=== PATIENT | female | born 1945 | race African-American/Black ===

== ENCOUNTER 2017-04-29 15:33 | Emergency (ER) | payer OTHER ==
[~2017-04-29] VITALS: Ht 162.6 cm; Wt 85.3 kg
[~2017-04-29 15:33] MED LIST: AMLO5TAB2 PO; ASPI-482 PO; ATOR10TA60 PO; CLON0.1T PO; DOXY100C2 PO; ESTR1PAT27 TD; FISH1CAP PO; LOSA1TAB16 PO; METF500T4 PO; MULT1TAB97 PO; OMEP20CA9 PO; RANI150C PO; TIZA2TAB PO
[2017-04-29 15:43] VITALS: BP 163/90
[2017-04-29] MEDS ORDERED: HYDR-971 PO (16:09)
[2017-04-29] MEDS ORDERED: CLIN300C8 PO (16:09)
--- NOTE | 2017-04-29 16:09 | PHYS DOC ---
Past Medical History Past Medical History: Diabetes-Type II, GERD, High Cholesterol, Hypertension Past Surgical History: Hysterectomy Additional Past Surgical Histo: Bladder sling, sinus surgery Alcohol Use: None Drug Use: None Adult General Chief Complaint Chief Complaint: DENTAL PROBLEM HPI HPI Patient is a 71 year old female with history of hypertension diabetes type 2 and acid reflux who presents today with mild left upper gum dental pain and swelling that began 2 days ago. Patient denies any fever or trismus. She states she does have a dentist. PCP is Dr. Desai Review of Systems Review of Systems Constitutional: Denies fever or chills [] Eyes: Denies change in visual acuity, redness, or eye pain [] HENT: Dental pain and swelling Musculoskeletal: Denies back pain or joint pain [] Integument: Denies rash or skin lesions [] Neurologic: Denies headache, focal weakness or sensory changes [] Endocrine: Denies polyuria or polydipsia [] Allergies Allergies Allergies Coded Allergies Type Severity Reaction Last Updated Verified Penicillins Allergy Intermediate Rash 07/02/16 Yes codeine Allergy Intermediate Rash 07/03/16 Yes Physical Exam Physical Exam Constitutional: Well developed, well nourished, no acute distress, non-toxic appearance. [] HENT: Normocephalic, atraumatic, bilateral external ears normal, oropharynx moist, no oral exudates, nose normal. [] Left facial area with mild swelling consistent with a dental abscess Slight left lower gum dental erythema Skin: Warm, dry, no erythema, no rash. [] Back: No tenderness, no CVA tenderness. [] Extremities: No tenderness, no cyanosis, no clubbing, ROM intact, no edema. [] Neurologic: Alert and oriented X 3, normal motor function, normal sensory function, no focal deficits noted. [] Psychologic: Affect normal, judgement normal, mood normal. [] Current Patient Data Vital Signs Vital Signs Date Time Temp Pulse Resp B/P (MAP) Pulse Ox O2 Delivery O2 Flow Rate FiO2 04/29/17 15:43 98.4 87 20 100 Room Air 98.4 EKG EKG [] Radiology/Procedures Radiology/Procedures [] Course & Med Decision Making Course & Med Decision Making Pertinent Labs and Imaging studies reviewed. (See chart for details) Patient was treated for dental abscesses clindamycin. Discharged with [place] for pain. Follow-up with dentist next week. Dragon Disclaimer Dragon Disclaimer This electronic medical record was generated, in whole or in part, using a voice recognition dictation system. Departure Departure Impression: Primary Impression: Dentalgia Additional Impression: Dental abscess Disposition: 01 HOME, SELF-CARE Condition: STABLE Referrals: LUIS MIGUEL DESAI MD (PCP) Follow-up with your dentist as soon as you can Patient Instructions: Dental Abscess Additional Instructions: You were seen for dental abscess. Please complete your antibiotics. Follow-up with your dentist as soon as you can. Scripts Clindamycin Hcl (CLINDAMYCIN HCL) 300 Mg Capsule 3 CAP PO TID, #90 CAP Prov: VITO SPENCE APRN 04/29/17 Hydrocodone/Apap 5-325 (NORCO 5-325 TABLET) 1 Each Tablet 1-2 TAB PO Q4-6HRS, #14 TAB Prov: VITO SPENCE APRN 04/29/17 Problem Qualifiers VITO SPENCE APRN Apr 29, 2017 16:09
== END 2017-04-29 16:15 | disposition home or self-care (01) ==
LOC: ER 15:33
DX: K04.7 Periapical abscess without sinus (principal); I10 Essential (primary) hypertension; E11.9 Type 2 diabetes mellitus without complications; K21.9 Gastro-esophageal reflux disease without esophagitis; E78.00 Pure hypercholesterolemia, unspecified; Z88.0 Allergy status to penicillin; Z90.710 Acquired absence of both cervix and uterus; Z88.5 Allergy status to narcotic agent
CPT/HCPCS: 99283

== ENCOUNTER → 2017-07-28 | Outpatient (CLI) | payer OTHER ==
[~2017-07-28] MED LIST changes: +CLIN300C8 PO; +HYDR-971 PO; -LOSA1TAB16 PO; +LOSA1TAB19 PO
--- NOTE | 2017-07-28 14:45 | RAD ---
DATE: 07/28/2017 EXAM: DIGITAL SCREEN BILAT W/CAD HISTORY: Screening study. COMPARISON: 07/27/2016 This study was interpreted with the benefit of Computerized Aided Detection (CAD). The breast parenchyma shows scattered fibroglandular densities. Breast parenchyma level B. FINDINGS: Digital MLO and CC mammograms of both breasts were obtained. Comparison study is dated 07/27/2016. The breast parenchyma is composed of scattered fibroglandular densities which can obscure a lesion on mammography (breast density code B). Benign-appearing calcifications are seen bilaterally. No spiculated mass is noted. No malignant appearing calcification or area of architectural distortion is noted. Since the previous examination there has been no significant interval change. IMPRESSION: BI-RADS Category 1, negative. There is no mammographic evidence of malignancy. Routine yearly screening mammography is recommended for follow-up. BI-RADS CATEGORY: 1 NEGATIVE RECOMMENDED FOLLOW-UP: 12M 12 MONTH FOLLOW-UP PQRS compliance statement: Patient information was entered into a reminder system with a target due date 07/28/2018 for the next mammogram. Mammography is a sensitive method for finding small breast cancers, but it does not detect them all and is not a substitute for careful clinical examination. A negative mammogram does not negate a clinically suspicious finding and should not result in delay in biopsying a clinically suspicious abnormality. "Our facility is accredited by the [employer] Mammography [employer]."
== END | disposition home or self-care (01) ==
LOC: MAMMO 09:45
PROVIDERS: ATTEND Internal Medicine
DX: Z12.31 Encounter for screening mammogram for malignant neoplasm of breast (principal)
CPT/HCPCS: G0202; 77067

== ENCOUNTER 2017-11-28 09:06 | Emergency (ER) | payer OTHER ==
[2017-11-28 10:20] LABS: HEMATOCRIT 43.2 % (36.0-47.0); MEAN CORPUSCULAR HEMOGLOBIN 27 pg (25-35); MEAN CORPUSCULAR HGB CONC 32 g/dL (31-37); MEAN CORPUSCULAR VOLUME 84 fL (79-100); PLATELET COUNT 443 x10^3/uL (140-400); RED BLOOD COUNT 5.17 x10^6/uL (3.50-5.40); RED CELL DISTRIBUTION WIDTH 14.2 % (11.5-14.5); WHITE BLOOD COUNT 6.8 x10^3/uL (4.0-11.0)
[2017-11-28] MEDS: BENZONATATE 100 MG CAPSULE. PO (10:27)
[2017-11-28 10:41] LABS: ANION GAP 11 (6-14); BLOOD UREA NITROGEN 17 mg/dL (7-20); BUN/CREATININE RATIO 21 (6-20); CALCIUM 10.1 mg/dL (8.5-10.1); CARBON DIOXIDE 29 mmol/L (21-32); CHLORIDE 99 mmol/L (98-107); CREATININE 0.8 mg/dL (0.6-1.0); GFR 85.1; GLUCOSE 216 mg/dL (70-99); SODIUM 139 mmol/L (136-145)
[2017-11-28 10:47] LABS: ALBUMIN 4.1 g/dL (3.4-5.0); ALBUMIN/GLOBULIN RATIO 1.1 (1.0-1.7); ALK PHOS 61 U/L (46-116); ALT (SGPT) 22 U/L (14-59); AST (SGOT) 32 U/L (15-37); BILIRUBIN,URINE SMALL (NEG); CLARITY,URINE CLEAR; GLUCOSE,URINE NEGATIVE (NEG); NITRITE,URINE NEGATIVE (NEG); PH,URINE 5.5; PROTEIN,URINE NEGATIVE (NEG-TRACE); TOTAL BILIRUBIN 0.6 mg/dL (0.2-1.0); TOTAL PROTEIN 7.7 g/dL (6.4-8.2)
[2017-11-28 10:58] LABS: COLOR,URINE YELLOW; HYALINE CASTS, URINE MODERATE /HPF; SQUAMOUS EPITHELIAL CELL,UR MANY /LPF
[2017-11-28 10:59] LABS: BACTERIA,URINE MOD /HPF (0-FEW)
[2017-11-28 11:00] LABS: RBC,URINE OCC /HPF (0-2)
[2017-11-28 11:06] LABS: INFLUENZA A PATIENT NEGATIVE (NEGATIVE); INFLUENZA B PATIENT NEGATIVE (NEGATIVE); OBC FLU VALID
== END 2017-11-28 11:35 | disposition home or self-care (01) ==
LOC: ER 09:06
DX: J20.9 Acute bronchitis, unspecified (principal); E78.00 Pure hypercholesterolemia, unspecified; E11.9 Type 2 diabetes mellitus without complications; I10 Essential (primary) hypertension; K21.9 Gastro-esophageal reflux disease without esophagitis; Z88.0 Allergy status to penicillin; Z88.5 Allergy status to narcotic agent
CPT/HCPCS: 36415; 71046; 80053; 81001; 85027; 87804; 87804-59; 99285-25

== ENCOUNTER 2018-04-28 07:42 | Emergency (ER) | payer OTHER ==
[2018-04-28] MEDS: FAMOTIDINE 20 MG TABLET. PO (08:38)
[2018-04-28] MEDS: hydrOXYzine IM 50 MG/ML VIAL IM (08:41)
[2018-04-28] MEDS: methylPREDNISolone SOD SUCC PF 125 MG/2 ML VIAL. IM (08:44)
== END 2018-04-28 09:00 | disposition home or self-care (01) ==
LOC: ER 07:42
DX: L23.9 Allergic contact dermatitis, unspecified cause (principal); E11.9 Type 2 diabetes mellitus without complications; K21.9 Gastro-esophageal reflux disease without esophagitis; E78.00 Pure hypercholesterolemia, unspecified; I10 Essential (primary) hypertension; Z88.0 Allergy status to penicillin; Z88.5 Allergy status to narcotic agent; Z88.8 Allergy status to other drugs, medicaments and biological substances
CPT/HCPCS: 96372; 99284; J2930; J3410

== ENCOUNTER → 2018-07-31 | Outpatient (CLI) | payer OTHER ==
[2018-04-28 07:44] VITALS: BP 158/89
[~2018-07-31] MED LIST changes: -AMLO5TAB2 PO; +AMLO5TAB7 PO; +AZIT250T6 PO; +BENZ100C PO; +GUAI600T47 PO; +HYDR25TA PO; +LOSA100T7 PO; +METF500T16 PO; -METF500T4 PO; +TRIA15OI TP
--- NOTE | 2018-07-31 12:36 | RAD ---
DATE: 07/31/2018 EXAM: MAMMO WYATT SCREENING BILATERAL HISTORY: Routine screening COMPARISON: 07/28/2017 This study was interpreted with the benefit of Computerized Aided Detection (CAD). The breast parenchyma shows scattered fibroglandular densities. Breast parenchyma level B. FINDINGS: 2-D and 3-D tomosynthesis imaging was performed in CC and MLO projections. No new or enlarging breast densities are seen. Minimal benign type calcifications are noted. No suspicious microcalcifications have developed. IMPRESSION: Stable mammograms without evidence of malignancy. BI-RADS CATEGORY: 2 BENIGN FINDING(S) RECOMMENDED FOLLOW-UP: 12M 12 MONTH FOLLOW-UP PQRS compliance statement: Patient information was entered into a reminder system with a target due date for the next mammogram. Mammography is a sensitive method for finding small breast cancers, but it does not detect them all and is not a substitute for careful clinical examination. A negative mammogram does not negate a clinically suspicious finding and should not result in delay in biopsying a clinically suspicious abnormality. "Our facility is accredited by the [employer] Mammography [employer]."
== END | disposition home or self-care (01) ==
LOC: MAMMO 10:19
PROVIDERS: ATTEND Internal Medicine
DX: Z12.31 Encounter for screening mammogram for malignant neoplasm of breast (principal); E78.00 Pure hypercholesterolemia, unspecified; I10 Essential (primary) hypertension; E11.9 Type 2 diabetes mellitus without complications; K21.9 Gastro-esophageal reflux disease without esophagitis; Z90.710 Acquired absence of both cervix and uterus; Z68.31 Body mass index [BMI] 31.0-31.9, adult; Z88.0 Allergy status to penicillin; Z88.8 Allergy status to other drugs, medicaments and biological substances; Z88.5 Allergy status to narcotic agent; Z88.6 Allergy status to analgesic agent; Z82.49 Family history of ischemic heart disease and other diseases of the circulatory system; Z82.3 Family history of stroke
CPT/HCPCS: 77063; 77067

== ENCOUNTER → 2019-08-01 | Outpatient (CLI) | payer OTHER ==
[2018-04-28 07:44] VITALS: BP 158/89
[~2019-08-01] MED LIST changes: +AMLO5TAB10 PO; -AMLO5TAB7 PO; +HYDR-3164 PO; -HYDR-971 PO; +LOSA100T14 PO; -LOSA100T7 PO; +OMEP20CA10 PO; -OMEP20CA9 PO; -TIZA2TAB PO; +TIZA2TAB2 PO
--- NOTE | 2019-08-02 14:08 | RAD ---
DATE: 08/01/2019 9:18 AM EXAM: MAMMO WYATT SCREENING BILATERAL HISTORY: routine screening evaluation. COMPARISON: Prior mammographic imaging 07/31/2018, 07/28/2017, 07/27/2016 Bilateral CC and MLO views of the breasts were performed. Bilateral breast tomosynthesis was performed in CC and MLO projections. This study was interpreted with the benefit of Computerized Aided Detection (CAD). FINDINGS: Breast Density: SCATTERED The breast parenchyma shows scattered fibroglandular densities. Breast parenchyma level B Benign calcifications are present. The parenchymal pattern appears stable. No suspicious masses, microcalcifications or architectural distortion is present to suggest malignancy in either breast. The visualized axillae are unremarkable. IMPRESSION: No mammographic evidence of malignancy. BI-RADS CATEGORY: 2 BENIGN FINDING(S) RECOMMENDED FOLLOW-UP: 12M 12 MONTH FOLLOW-UP Annual screening mammography is recommended, unless clinically indicated sooner based on symptoms or change in physical exam. PQRS compliance statement: Patient information was entered into a reminder system with a target due date for the next mammogram. Mammography is a sensitive method for finding small breast cancers, but it does not detect them all and is not a substitute for careful clinical examination. A negative mammogram does not negate a clinically suspicious finding and should not result in delay in biopsying a clinically suspicious abnormality. "Our facility is accredited by the [employer] Mammography [employer]."
== END | disposition home or self-care (01) ==
LOC: MAMMO 09:13
PROVIDERS: ATTEND Internal Medicine
DX: Z12.31 Encounter for screening mammogram for malignant neoplasm of breast (principal); N64.89 Other specified disorders of breast
CPT/HCPCS: 77063; 77067

== ENCOUNTER → 2019-11-12 | Outpatient (CLI) | payer OTHER ==
[2018-04-28 07:44] VITALS: BP 158/89
[~2019-11-12] MED LIST changes: +OMEP-229 PO; -OMEP20CA10 PO
--- NOTE | 2019-11-12 14:33 | KCIC ---
MRI Thoracic Spine without contrast History: Worsening mid back pain greater in the left ribs and scapula, tender to touch Technique: Multiplanar, multi sequential noncontrast MR imaging was performed of the thoracic spine. Comparison: None Findings: Thoracic vertebral body stature and AP alignment are maintained. Thoracic cord caliber is within normal limits without defined or expansile signal abnormality. There is no significant focal marrow edema. Intervertebral disc spaces are relatively maintained. There is minimal narrowing of the right T9-10 through T11-12 neural foramina by facets. There is mild thoracic levoscoliosis. There is multilevel mild posterior epidural lipomatosis. Impression: 1. There is no significant thoracic spinal stenosis or evidence of recent thoracic compression fracture. There is thoracic levoscoliosis. Electronically signed by: Anthony Loaiza MD (11/12/2019 2:30 PM) [facility]-[id number]
== END | disposition home or self-care (01) ==
LOC: KCIC MRI 11:38
PROVIDERS: ATTEND Internal Medicine
DX: M41.84 Other forms of scoliosis, thoracic region (principal); M48.04 Spinal stenosis, thoracic region
CPT/HCPCS: 72146

== ENCOUNTER → 2020-08-04 | Outpatient (CLI) | payer MEDICARE, OTHER ==
[2018-04-28 07:44] VITALS: BP 158/89
[~2020-08-04] MED LIST changes: -OMEP-229 PO; +OMEP20CA16 PO; -TIZA2TAB2 PO; +TIZA2TAB4 PO
--- NOTE | 2020-08-04 13:01 | RAD ---
DATE: 08/04/2020 11:00 AM EXAM: MAMMO WYATT SCREENING BILATERAL HISTORY: Screening COMPARISON: 08/01/2019, 07/31/2018 Bilateral CC and MLO views of the breasts were performed. Bilateral breast tomosynthesis was performed in CC and MLO projections. This study was interpreted with the benefit of Computerized Aided Detection (CAD). FINDINGS: Breast Density: SCATTERED The breast parenchyma shows scattered fibroglandular densities. Breast parenchyma level B No suspicious masses, microcalcifications or architectural distortion is present to suggest malignancy in either breast. The visualized axillae are unremarkable. IMPRESSION: No mammographic evidence of malignancy. BI-RADS CATEGORY: 1 NEGATIVE RECOMMENDED FOLLOW-UP: 12M 12 MONTH FOLLOW-UP Annual screening mammography is recommended, unless clinically indicated sooner based on symptoms or change in physical exam. PQRS compliance statement: Patient information was entered into a reminder system with a target due date for the next mammogram. Mammography is a sensitive method for finding small breast cancers, but it does not detect them all and is not a substitute for careful clinical examination. A negative mammogram does not negate a clinically suspicious finding and should not result in delay in biopsying a clinically suspicious abnormality. "Our facility is accredited by the [employer] Mammography Program."
== END | disposition home or self-care (01) ==
LOC: MAMMO 10:54
PROVIDERS: ATTEND Family Medicine
DX: Z12.31 Encounter for screening mammogram for malignant neoplasm of breast (principal)
CPT/HCPCS: 77063; 77067

== ENCOUNTER → 2021-05-27 | Outpatient (CLI) | payer MEDICARE ==
[2018-04-28 07:44] VITALS: BP 158/89
[~2021-05-27] MED LIST changes: +AMLO-186 PO; -AMLO5TAB10 PO; -CLIN300C8 PO; +CLIN300C9 PO; +TIZA-58 PO; -TIZA2TAB4 PO
--- NOTE | 2021-05-27 16:04 | KCIC ---
EXAM: Right ankle, 3 views. HISTORY: Pain. COMPARISON: None. FINDINGS: The views of the right ankle are obtained. There is no fracture, dislocation or subluxation . There are tiny benign osseous excrescences inferior to the medial malleolus, the appearance of whic h favors changes due to remote injury. There is enthesopathy at Achilles tendon insertion. There is n o osteochondral lesion. IMPRESSION: No convincing acute osseous finding. Electronically signed by: Damaris Vogt MD (05/27/2021 4:02 PM) [id number]
== END ==
LOC: KCIC 15:16
PROVIDERS: ATTEND Family Medicine
DX: M76.61 Achilles tendinitis, right leg (principal)
CPT/HCPCS: 73610

== ENCOUNTER → 2021-08-09 | Outpatient (CLI) | payer MEDICARE ==
[2018-04-28 07:44] VITALS: BP 158/89
[~2021-08-09] MED LIST changes: -DOXY100C2 PO; +DOXY100C3 PO
--- NOTE | 2021-08-09 11:07 | RAD ---
EXAM: Bilateral digital screening mammogram with tomosynthesis. HISTORY: 75-year-old female presents for screening mammography. TECHNIQUE: Full-field digital craniocaudal and mediolateral oblique 2D and 3D tomosynthesis images of both breasts are obtained for evaluation. Computer aided detection was applied. COMPARISON: 08/04/2020 BREAST PARENCHYMAL DENSITY: Level A - Mostly fat. FINDINGS: There is no new suspicious mass, microcalcification or region of architectural distortion. IMPRESSION: BI-RADS Category 2: Benign finding(s). RECOMMENDATION: Annual mammography is recommended. If your mammogram demonstrates that you have dense breast tissue, which could hide abnormalities, and if you have other risk factors for breast cancer that have been identified, you might benefit from s upplemental screening tests that may be suggested by your ordering physician. Dense breast tissue, i n and of itself, is a relatively common condition. This information is not provided to cause undue c oncern, but rather to raise your awareness and to promote discussion with your physician regarding th e presence of other risk factors, in addition to dense breast tissue. A report of your mammography re sults will be sent to you and your physician. You should contact your physician if you have any ques tions or concerns regarding this report. Mammography is a sensitive method for finding small breast cancers, but it does not detect them all a nd is not a substitute for careful clinical examination. A negative mammogram does not negate a clin ically suspicious finding and should not result in delay in biopsying a clinically suspicious abnorma lity. PQRS compliance statement - Patient information was entered into a reminder system with a target due date for the next mammogram. "Our facility is accredited by the [employer] Mammography [employer]." Electronically signed by: Damaris Vogt MD (08/09/2021 11:04 AM) [id number]
== END ==
LOC: MAMMO 10:17
PROVIDERS: ATTEND Family Medicine
DX: Z12.31 Encounter for screening mammogram for malignant neoplasm of breast (principal)
CPT/HCPCS: 77063; 77067

== ENCOUNTER → 2021-09-13 | Outpatient (CLI) | payer MEDICARE ==
[2018-04-28 07:44] VITALS: BP 158/89
[~2021-09-13] MED LIST changes: +CLIN-94 PO; -CLIN300C9 PO
--- NOTE | 2021-09-13 15:58 | KCIC ---
XR LUMBAR SPINE 2-3V 09/13/2021 Reason: Chronic Lt sided low back pain. Comparison: None Technique: AP, lateral, lumbosacral views of the lumbar spine. Findings: There are 5 nonrib-bearing vertebral bodies in the lumbar spine. Grade 1 anterolisthesis of L4 on L5. Vertebral body heights are normal. There is degenerative change of the facet joints greatest at the L3-4, L4 4 L5 and L5-S1 levels. Impression: Grade 1 anterolisthesis of L4 on L5 likely degenerative in nature. Electronically signed by: David Hudson (09/13/2021 3:55 PM) [id number]
== END ==
LOC: KCIC 11:03
PROVIDERS: ATTEND Family Medicine
DX: M47.817 Spondylosis without myelopathy or radiculopathy, lumbosacral region (principal); M43.16 Spondylolisthesis, lumbar region
CPT/HCPCS: 72100